=== PATIENT | male | born 1995 | race Caucasian/White ===

== ENCOUNTER 2022-05-10 14:53 | Outpatient (CLI) | payer OTHER | END 2022-05-10 14:54 | disposition home or self-care (01) | LOC: SC 14:53 | PROVIDERS: ATTEND Internal Medicine Pulmonary Disease | DX: Z53.9 Procedure and treatment not carried out, unspecified reason (principal) ==

== ENCOUNTER 2022-06-18 14:15 | Outpatient (CLI) | payer OTHER ==
[2022-06-18 14:45] VITALS: BP 134/86
--- NOTE | 2022-06-18 14:45 | SLEEP CARE CONSULTATION ---
Information from patient questionnaire entered by Hilaria Adams. I have reviewed and concur with the information entered by Hilaria Adams. This document represents the service I personally performed and the decisions made by me, Analia Claudio ARNP. History of Present Illness Service Date and Time: 06/18/2022 1415 Initial [place] Sleepiness Scale score: 20 (04/12/2022) Current [place] Sleepiness Scale score: 19 (06/18/22) Additional HPI information: ANGELICA JEAN returns for follow up and results of the recently performed home sleep study. I explained the pathophysiology behind obstructive sleep apnea. We then spent quite a bit of time discussing different treatment options. For mild obstructive sleep apnea, surgery and oral appliance are alternatives to nasal CPAP therapy but in moderate or severe cases, nasal CPAP is the most effective and reliable treatment. Because apnea is primarily in supine position, then positional management therapy could be effective. Methods discussed such as positioning with pillows to prevent supine sleep. I reviewed the impact of weight changes on sleep apnea and strongly recommended losing weight. After some discussion, the patient opted to go with the nasal CPAP therapy. Nasal autoCPAP set at 4-15 cmH20 will be ordered with rationale explained. A manual titration study will be ordered if unable to find optimal pressure with office adjustments. I explained how CPAP machine works and what to expect when using the machine. Using CPAP every night in order to get used to it was emphasized. Patient advised to put CPAP mask on before getting into bed so as not to fall asleep without CPAP. To assist acclimation to CPAP use, it could also be used for a short time during day while reading or watching TV. The patient was instructed to call the CPAP supplier to discuss any mechanical problem that may occur. If the mask given is uncomfortable or is difficult to keep on through the night even with adjustment, contact the CPAP supplier as many will replace with another mask style if notified before 30 days. If snoring or perceives is not getting enough air or too much air from the machine, notify this office. Patient counseled not drink alcohol less than 4 hours before bedtime as it can increase snoring and apnea. Patient was cautioned about risks of drowsy driving until sleepiness symptoms resolve. Sleep Study - Results Type of Sleep Study: Home sleep study (COMPLETED 05/12/22) Prior sleep studies: No Polysomnography/Home Sleep Study results: Physician Impression: The quality of the study is good. The length of the study is adequate (> 240 minutes). Please also see the tabulated and graphic data. 1. Obstructive Sleep Apnea-Hypopnea (ICD-10 G47.33), mild, with an AHI of 9.0/hr and michelle SaO2 of 88%. During the study, the patient had 57 apneas (57 obstructive, 0 central, 0 mixed) and 14 hypopneas. The longest episode lasted 98.5 seconds. The patient did not sleep supine during this study. 2. Hypoxemia (ICD-10 R09.02), minimal, with the lowest oxygen saturation of 88 % and 0.1 minutes with SaO2 under 90%. Baseline oxygen saturation was normal (Average oxygen saturation was 95%). Allergies and Home Medications Drug allergies reviewed: Yes (NKDA) Home medication list reviewed: Yes (no changes) Review of Systems Review of systems same as previous: Yes (no changes) Physical Exam Vital signs obtained and entered by: HILARIA Horton MA Blood Pressure: 134/86 (LEFT ARM) Cuff size: regular Heart Rate: 109 O2 Saturation: 98 Height: 5 ft 10 in Weight: 207 lb 6.4 oz Body Mass Index: 29.7 BMI Classification: Overweight Impression and Plan 1. Obstructive Sleep Apnea-Hypopnea Syndrome, mild, with lowest oxygen saturation of 88%. Obviously this is the cause of the patients symptoms of unrefreshed sleep, and excessive daytime sleepiness. As mentioned above, the patient will be started on nasal autoCPAP therapy with pressure set at 4-15 cmH2 O. Compliance guidelines also reviewed. A copy of compliance guidelines will be given for reference at check out. * Nasal auto CPAP therapy, pressure at 4-15 cm H2O. * Attempt to lose weight. * Avoid alcohol consumption near bedtime. * Avoid supine sleep until using CPAP. * The patient is again cautioned about driving until sleepiness completely resolves. * Return one month after CPAP obtained. I will assess response to therapy and compliance at that time. Counseling Topics: Weight loss health impact Visit Type: In Office Time Spent with Patient (minutes): 20 Provider Statement: I spent 100% of the Face to Face Visit with the patient with greater than 50% spent counseling the patient and coordination of care.
== END 2022-06-18 14:16 | disposition home or self-care (01) ==
LOC: SC 14:15
PROVIDERS: ATTEND Nurse Practitioner Family
DX: G47.33 Obstructive sleep apnea (adult) (pediatric) (principal); E66.3 Overweight; Z68.29 Body mass index [BMI] 29.0-29.9, adult
CPT/HCPCS: 99212; 99213

== ENCOUNTER 2022-09-03 09:24 | Outpatient (CLI) | payer OTHER ==
[2022-09-03 10:02] VITALS: BP 132/78
--- NOTE | 2022-09-03 10:02 | SLEEP CARE CONSULTATION ---
Information from patient questionnaire entered by Hilaria Adams. I have reviewed and concur with the information entered by Hilaria Adams. This document represents the service I personally performed and the decisions made by , Analia Claudio ARNP. History of Present Illness Service Date and Time: 09/03/2022923 Previous diagnosis: Mild, Obstructive Sleep Apnea-Hypopnea Syndrome AHI: 9.0 (in 2021) Reason for follow up: first compliance Equipment type: CPAP (RESMED Airsense 10, s/u 07/2022) Equipment obtained from: Other ([facility], [facility] [employer]) Mask style: Full face Mask brand: Respironics Backup mask available: Yes (other mask) Last cushion change: 2 weeks Prior sleep studies: Yes Type of Sleep Study: Home sleep study (COMPLETED 05/12/22) HPI additional information: ANGELICA JEAN was diagnosed to have mild, AHI 9.0, obstructive sleep apnea- hypopnea syndrome and returned today for CPAP therapy first compliance follow- up. Sleep Study - Results Type of Sleep Study: Home sleep study (COMPLETED 05/12/22) Prior sleep studies: No CPAP Compliance Data - Data Reviewed with Patient Average duration of nightly device use: 6 HRS 37 MINS Compliance rate %: 86 (08/04/22-09/01/22; days used) Current pressure setting (cmH2O): 4-15 (median 7.8, avg 11.1, max 12.5) Average residual AHI: 0.9 Central apnea: 0.2 Obstructive apnea: 0.3 Hypopnea: 0.3 Average large leak: 2.6 L/min Subjective Patient concerns: denies: aerophagia, mask discomfort, air blowing in eyes, mask leak noise, condensation in mask/hose, nasal congestion, dry mouth, nose, throat, epistaxis Observed to snore while using device: No Current pressure setting perceived as: comfortable On therapy, patient: reports: sleeping better, awakening more refreshed, being m ore awake and alert during the day, more rested overall. denies: drowsiness while driving Initial [place] Sleepiness Scale score: 20 (04/12/2022) Current [place] Sleepiness Scale score: 6 (09/03/22) Allergies and Home Medications Known drug allergies: No Drug allergies reviewed: Yes Home medication list reviewed: Yes (Dicyclomine, naproxen, Colestipol, Arthritis) Allergy and home medication list: Allergies No Known Drug Allergies Allergy (Verified 09/02/22 10:49) Review of Systems Review of systems same as previous: No (IBS) Physical Exam Vital signs obtained and entered by: HILARIA Horton MA Blood Pressure: 132/78 (LEFT ARM) Cuff size: regular Heart Rate: 106 O2 Saturation: 98 Height: 5 ft 10 in Weight: 206 lb 3.2 oz Body Mass Index: 29.5 BMI Classification: Overweight Impression and Plan 1. Obstructive Sleep Apnea-Hypopnea Syndrome, mild, with good treatment compliance and good apnea control. On CPAP therapy, the patient has better sleep quality and is more rested overall. He has significant improvement of his sleep apnea and is satisfied with current CPAP therapy. Patient denies problems with oral dryness, nasal congestion, epistaxis, skin irritation or aerophagia. The patients pressure will be changed to autoCPAP 8-12 cmH20 to reflect pressure being used. Patient advised to contact me if pressure change is uncomfortable so that it can be adjusted. Goals for apnea control discussed. Patient's apnea severity and rationale for treatment to reduce apnea, improve sleep quality and reduce cardiovascular and cerebrovascular events was reviewed. 2. Overweight, unspecified. Currently patients BMI is 29.5. Obesity increases the risk of apnea, CPAP pressure requirements and overall health risks especially cardiovascular and diabetes. Thus patient is advised to lose weight. * Change auto CPAP pressure to 8-12 cmH2O * Notify me if snoring with mask or feeling that the pressure is too much or too little * Attempt to lose weight * Call this office if any problems using CPAP * Return for follow up in 1-2 months, or sooner if concerns arise Counseling Topics: Spare mask, Weight loss health impact Visit Type: In Office Time Spent with Patient (minutes): 20 Provider Statement: I spent 100% of the Face to Face Visit with the patient with greater than 50% spent counseling the patient and coordination of care.
== END 2022-09-03 09:25 | disposition home or self-care (01) ==
LOC: SC 09:24
PROVIDERS: ATTEND Nurse Practitioner Family
DX: G47.33 Obstructive sleep apnea (adult) (pediatric) (principal); E66.3 Overweight; Z68.29 Body mass index [BMI] 29.0-29.9, adult
CPT/HCPCS: 99212; 99213

== ENCOUNTER 2022-10-01 08:09 | Outpatient (CLI) | payer OTHER ==
--- NOTE | 2022-10-01 08:36 | Sleep Patient Instructions ---
Sleep Center Visit Summary - Patient Visit Information Reason for Visit: One month follow up of CPAP therapy - Patient Instructions Additional Instructions: You were here for follow up of CPAP therapy. You will be continued on CPAP therapy with pressure at 8-12 cmH2O. You should follow up with sleep care in 12 months. You may contact us sooner for any questions or concerns. - Clinic Information Contact: [facility] [address] [place] [address] [email or web address] T: [phone]
[2022-10-01 08:41] VITALS: BP 126/80
--- NOTE | 2022-10-01 08:41 | SLEEP CARE CONSULTATION ---
Information from patient questionnaire entered by Hilaria Adams. I have reviewed and concur with the information entered by Hilaria Adams. This document represents the service I personally performed and the decisions made by , Analia Claudio ARNP. History of Present Illness Service Date and Time: 10/01/2022 0809 Previous diagnosis: Mild, Obstructive Sleep Apnea-Hypopnea Syndrome AHI: 9.0 (in 2021) Reason for follow up: one month (F/U) Equipment type: CPAP (RESMED Airsense 10, s/u 07/2022) Equipment obtained from: Other ([employer], [employer]) Mask style: Full face Backup mask available: Yes (other mask) Last cushion change: 3 days Prior sleep studies: No Type of Sleep Study: Home sleep study (COMPLETED 05/12/22) HPI additional information: ANGELICA JEAN was diagnosed to have mild, AHI 9, obstructive sleep apnea- hypopnea syndrome and returned today for CPAP therapy one month follow-up. Sleep Study - Results Type of Sleep Study: Home sleep study (COMPLETED 05/12/22) Prior sleep studies: No CPAP Compliance Data - Data Reviewed with Patient Average duration of nightly device use: 6 HRS 30 MINS Compliance rate %: 70 (08/31/22-09/29/22; days used) Current pressure setting (cmH2O): 8-12 Average residual AHI: 1.2 Central apnea: 0.2 Obstructive apnea: 0.6 Average large leak: 0.7 l/min Subjective Missed days of use due to: reports: illness (could not use it and sleep) Patient concerns: denies: aerophagia, mask discomfort, air blowing in eyes, mask leak noise, condensation in mask/hose, nasal congestion, dry mouth, nose, throat, epistaxis Observed to snore while using device: No Current pressure setting perceived as: comfortable On therapy, patient: reports: sleeping better, awakening more refreshed, being more awake and alert during the day, more rested overall. denies: drowsiness while driving Initial [place] Sleepiness Scale score: 20 (04/12/2022) Current [place] Sleepiness Scale score: 9 (10/01/22) Allergies and Home Medications Known drug allergies: No Drug allergies reviewed: Yes Home medication list reviewed: Yes (hydroxyzine 10 mg, prn) Allergy and home medication list: Allergies No Known Drug Allergies Allergy (Verified 09/30/22 11:22) Review of Systems Review of systems same as previous: No (Generalized Anxiety Disorder) Physical Exam Vital signs obtained and entered by: HILARIA Horton MA Blood Pressure: 126/80 (LEFT ARM) Cuff size: regular Heart Rate: 100 O2 Saturation: 98 Height: 5 ft 10 in Weight: 210 lb 6.4 oz Body Mass Index: 30.2 BMI Classification: Obese Impression and Plan 1. Obstructive Sleep Apnea-Hypopnea Syndrome, mild, with good treatment compliance and good apnea control. On CPAP therapy, the patient has better sleep quality and is more rested overall. Feliciano was sick and this affected his CPAP use because he could not wear the mask and sleep. He still reached good compliance. Patient has significant improvement of their sleep apnea and is satisfied with current CPAP therapy. Patient denies problems with oral dryness, nasal congestion, epistaxis, skin irritation or aerophagia. Patient's apnea severity and rationale for treatment to reduce apnea, improve sleep quality and reduce cardiovascular and cerebrovascular events was reviewed. He has a new diagnosis of generalized anxiety disorder and was started on hydroxyzine as needed. He states he is getting out of [place] and moving to [place]. I advised him to establish care once he is settled and follow up with sleep provider in about a year. He voiced understanding and agreement. He will continue with medically necessary CPAP therapy for his mild obstructive sleep apnea. 2. Obesity unspecified. Currently patients BMI is 30.2. Obesity increases the risk of apnea, CPAP pressure requirements and overall health risks especially cardiovascular and diabetes. Thus patient is advised to lose weight. * Continue auto CPAP pressure at 8-12 cmH2O * Notify me if snoring with mask or feeling that the pressure is too much or too little * Attempt to lose weight * Call this office if any problems using CPAP * Return for follow up in 1 year, or sooner if concerns arise Counseling Topics: Spare mask, Weight loss health impact Visit Type: In Office Time Spent with Patient (minutes): 23 Provider Statement: I spent 100% of the Face to Face Visit with the patient with greater than 50% spent counseling the patient and coordination of care.
== END 2022-10-01 08:10 | disposition home or self-care (01) ==
LOC: SC 08:09
PROVIDERS: ATTEND Nurse Practitioner Family
DX: G47.33 Obstructive sleep apnea (adult) (pediatric) (principal); E66.9 Obesity, unspecified; Z68.30 Body mass index [BMI] 30.0-30.9, adult
CPT/HCPCS: 99212; 99213